=== PATIENT | female | born 1945 | race Two or more races ===

== ENCOUNTER 2022-01-25 08:08 | Day surgery (SDC) | payer OTHER ==
[~2022-01-25] VITALS: Ht 167.6 cm; Wt 72.6 kg
[2022-01-25] MEDS ORDERED: PERCOCET 5-3251 EACH PO (13:57)
== END 2022-01-25 17:00 | disposition home or self-care (01) ==
LOC: CIR.AMB 08:08
PROVIDERS: ATTEND Obstetrics & Gynecology Gynecology
DX: D27.0 Benign neoplasm of right ovary (principal); N84.0 Polyp of corpus uteri; I10 Essential (primary) hypertension; K76.0 Fatty (change of) liver, not elsewhere classified; Z20.822 Contact with and (suspected) exposure to COVID-19

== ENCOUNTER 2023-05-03 08:00 | Outpatient (CLI) | payer OTHER ==
[~2023-05-03] VITALS: Ht 167.6 cm; Wt 77.1 kg
[~2023-05-03 08:00] MED LIST: PERCOCET 5-3251 EACH PO
[2023-05-03] MEDS ORDERED: COZAAR25 MG PO (14:14)
== END 2023-05-03 08:01 | disposition home or self-care (01) ==
LOC: EKG 08:00 → ADM 11:15 → CIR.AMB 05-09 09:45 → EDSTATUS 05-09 11:15 → CIR.AMB 05-09 11:15
PROVIDERS: ATTEND Obstetrics & Gynecology Gynecology
DX: N85.00 Endometrial hyperplasia, unspecified (principal)

== ENCOUNTER 2023-07-07 08:00 | Outpatient (CLI) | payer OTHER ==
[~2023-07-07 08:00] MED LIST changes: +COZAAR25 MG PO
== END 2023-07-07 08:01 | disposition home or self-care (01) ==
LOC: EKG 08:00 → ADM 08:00 → EKG 08:01 → ADM 11:15 → EDSTATUS 07-11 11:15 → CIR.AMB 07-11 11:15
PROVIDERS: ATTEND Obstetrics & Gynecology Gynecology
DX: N85.00 Endometrial hyperplasia, unspecified (principal)

== ENCOUNTER 2024-01-30 06:51 | Day surgery (SDC) | payer OTHER ==
[~2024-01-30 06:51] MED LIST changes: +COZAAR100 MG PO; +TOPROL XL50 M1 PO
[2024-01-30] MEDS ORDERED: POVIDONE-IODINE 118 ML BOTT TOP ONE (09:00)
[2024-01-30] MEDS ORDERED: IBU600 MG PO (09:44)
[2024-01-30] MEDS ORDERED: MORPHINE SULFATE 2 MG/ML CARTRIDGE IV ONE (11:40)
== END 2024-01-30 15:45 | disposition home or self-care (01) ==
LOC: CIR.AMB 06:51
PROVIDERS: ATTEND Obstetrics & Gynecology Gynecology
DX: N85.01 Benign endometrial hyperplasia (principal); N95.0 Postmenopausal bleeding